=== PATIENT | male | born 1945 | race Caucasian/White ===

== ENCOUNTER 2024-09-19 12:02 | Outpatient (CLI) | payer OTHER ==
[~2024-09-19 12:02] MED LIST: barium sulfate 340gm for oral suspension 1 BOTTLE SUSP.RECON PO ONE
== END 2024-09-19 23:59 | disposition home or self-care (01) ==
LOC: RAD 12:02
PROVIDERS: ATTEND Orthopaedic Surgery
DX: K21.9 Gastro-esophageal reflux disease without esophagitis (principal); K44.9 Diaphragmatic hernia without obstruction or gangrene; R13.10 Dysphagia, unspecified; R14.0 Abdominal distension (gaseous); R12 Heartburn
CPT/HCPCS: 74220